=== PATIENT | female | born 1990 | race Two or more races ===

== ENCOUNTER 2020-04-22 23:24 | Emergency (ER) | payer MEDICAID ==
[~2020-04-22] VITALS: Ht 152.4 cm; Wt 57.6 kg
[~2020-04-22 23:24] MED LIST: OTC MEDS
[2020-04-23] MEDS ORDERED: KETOROLAC 30MG/ML VIAL IM STA (00:49)
[2020-04-23 01:13] LABS: BASOPHILS % 0.3 % (0.0-2.0); EOSINOPHILS % 0.9 % (0.0-5.0); HEMATOCRIT. 42.7 % (36.0-48.0); HEMOGLOBIN. 14.6 g/dL (12.0-16.0); LYMPHOCYTES % 28.7 % (20.0-50.0); MEAN CORPUSCULAR HEMOGLOBIN 29.4 pg (28.0-32.0); MEAN CORPUSCULAR VOLUME 86.1 fL (81.0-99.0); MEAN PLATELET VOLUME 8.2 fl (7.4-10.4); MONOCYTES % 5.2 % (2.0-8.0); NEUTROPHILS % 64.9 % (40.0-76.0); PLATELET 355 x1000/uL (130-400); RED BLOOD CELL COUNT 4.97 mill/uL (4.2-5.4); RED CELL DISTRIBUTION WIDTH 12.4 % (11.6-14.6)
[2020-04-23 01:19] LABS: CHLORIDE 107 mEq/L (98-107)
[2020-04-23 01:27] LABS: CLARITY URINE CLEAR (CLEAR); COLOR URINE YELLOW (YELLOW); KETONES URINE 2+ (NEGATIVE); LEUKOCYTE ESTERASE URINE 2+ (NEGATIVE); NITRITE URINE NEGATIVE (NEGATIVE); OCCULT BLOOD URINE NEGATIVE (NEGATIVE); PH URINE 6.5 (4.5-8.0); PROTEIN URINE NEGATIVE (NEGATIVE); SPECIFIC GRAVITY URINE 1.017 (1.005-1.030)
[2020-04-23 02:00] VITALS: BP 131/67
[2020-04-23] MEDS ORDERED: POTASSIUM CHLORIDE 20MEQ TABLET SR PO ONE (02:00)
== END 2020-04-23 02:02 | disposition home or self-care (01) ==
LOC: ER 23:24
DX: N39.0 Urinary tract infection, site not specified (principal); J45.909 Unspecified asthma, uncomplicated; Z88.0 Allergy status to penicillin
CPT/HCPCS: 36415; 80053; 81003; 81025; 83690; 85025; 93005; 96372; 99284; J1885

== ENCOUNTER 2024-04-01 09:59 | Emergency (ER) | payer MEDICAID, OTHER ==
[~2024-04-01] VITALS: Ht 152.4 cm; Wt 69.0 kg
[2024-04-01 10:06] VITALS: O2SAT 98
[2024-04-01 10:59] LABS: BASOPHILS % 0.2 % (0.0-2.0); EOSINOPHILS % 0.5 % (0.0-5.0); HEMATOCRIT. 42.7 % (36.0-48.0); HEMOGLOBIN. 14.5 g/dL (12.0-16.0); LYMPHOCYTES % 18.3 % (20.0-50.0); MEAN CORPUSCULAR HEMOGLOBIN 29.2 pg (28.0-32.0); MEAN CORPUSCULAR VOLUME 85.8 fL (81.0-99.0); MEAN PLATELET VOLUME 7.4 fl (7.4-10.4); MONOCYTES % 3.3 % (2.0-8.0); NEUTROPHILS % 77.7 % (40.0-76.0); PLATELET 435 x1000/uL (130-400); RED BLOOD CELL COUNT 4.98 mill/uL (4.2-5.4); RED CELL DISTRIBUTION WIDTH 12.6 % (11.6-14.6); WHITE BLOOD COUNT 12.1 x1000/uL (4.5-11.0)
[2024-04-01 11:14] LABS: CHLORIDE 105 mEq/L (98-107); POTASSIUM 3.9 mEq/L (3.5-5.1); SODIUM 137 mEq/L (136-145)
[2024-04-01 11:15] LABS: CALCIUM 9.2 mg/dL (8.7-10.4); CARBON DIOXIDE 25 mEq/L (21-32)
[2024-04-01 11:20] LABS: CREATININE 0.5 mg/dL (0.6-1.0); GLUCOSE 120 mg/dL (70-105); UREA NITROGEN BLOOD 10 mg/dL (9-23)
[2024-04-01 11:25] LABS: HCG SCREEN NEGATIVE
[2024-04-01 11:34] LABS: TROPONIN I HIGH SENSITIVITY < 4 ng/L (3.0-34)
[2024-04-01] MEDS: SODIUM CHLORIDE 0.9% 1,000 ML IV ONE (12:06)
[2024-04-01] MEDS: DIPHENHYDRAMINE 50MG/ML VIAL IV ONE (12:07)
[2024-04-01] MEDS: MORPHINE SULFATE 2 MG/ML INJ (NOT FOR IM USE) IV ONE (12:09)
[2024-04-01] MEDS: METOCLOPRAMIDE HCL 10MG/2ML VIAL IV ONE (12:10)
[2024-04-01 13:11] LABS: TROPONIN I HIGH SENSITIVITY < 4 ng/L (3.0-34)
[2024-04-01 13:58] VITALS: BP 92/63; PULSE 63; RESP 18; TEMP 36.28068; O2SAT 98
[2024-04-02] MEDS ORDERED: IOHEXOL-350 100 ML BOTTLE ONE (09:46)
== END 2024-04-01 14:43 | disposition home or self-care (01) ==
LOC: ER 10:17 → EDBEDREQ 10:50 → CANBEDREQ 12:37 → ER 14:43
DX: R51.9 Headache, unspecified (principal); R07.9 Chest pain, unspecified; J45.909 Unspecified asthma, uncomplicated; Z88.0 Allergy status to penicillin
CPT/HCPCS: 80048; 84703; 85025; 84484; 36415; 71045; 70496; 93005; 96361; 96374; 96375; 99285; J1200; J2765; J2270; J7030; Z7610